=== PATIENT | female | born 1940 | race African-American/Black ===

== ENCOUNTER 2019-07-20 21:31 | Emergency (ER) | payer OTHER ==
[~2019-07-20] VITALS: Ht 162.6 cm; Wt 63.0 kg
[2019-07-20] MEDS ORDERED: ONDANSETRON HCL 4MG/2ML INJ IV STA (22:24)
[2019-07-20] MEDS ORDERED: FAMOTIDINE 20MG/2ML VIAL IV STA (22:24)
[2019-07-20] MEDS ORDERED: SODIUM CHLORIDE 0.9% 1,000 ML IV ONE (22:24)
[2019-07-20 23:16] LABS: BASOPHILS % 0.8 % (0.0-2.0); EOSINOPHILS % 0.1 % (0.0-5.0); HEMATOCRIT. 30.6 % (36.0-48.0); HEMOGLOBIN. 9.8 g/dL (12.0-16.0); LYMPHOCYTES % 9.7 % (20.0-50.0); MEAN PLATELET VOLUME 7.7 fl (7.4-10.4); MONOCYTES % 5.2 % (2.0-8.0); NEUTROPHILS % 84.2 % (40.0-76.0); PLATELET 285 x1000/uL (130-400); RED BLOOD CELL COUNT 3.52 mill/uL (4.2-5.4)
[2019-07-20 23:19] LABS: CHLORIDE 97 mEq/L (98-107)
[2019-07-20 23:20] LABS: INR 1.1; PROTHROMBIN TIME 11.4 sec (9.6-11.0)
[2019-07-20 23:22] LABS: ETHANOL BLOOD < 10 mg/dL
[2019-07-21] MEDS ORDERED: IOHEXOL-300 100 ML BOTTLE ONE (03:42)
[2019-07-21 05:52] VITALS: BP 117/57
== END 2019-07-21 06:07 | disposition short-term general hospital (02) ==
LOC: ER 21:31
DX: K92.2 Gastrointestinal hemorrhage, unspecified (principal); D64.9 Anemia, unspecified; I10 Essential (primary) hypertension; Z88.5 Allergy status to narcotic agent; Z88.0 Allergy status to penicillin
CPT/HCPCS: 36415; 71045; 71260; 80053; 80320; 83605; 83690; 85025; 85610; 93005; 96361; 96374; 96375; 99285; J2405; J3490; J7030; Q9967; G0480